=== PATIENT | female | born 1990 | race Caucasian/White ===

== ENCOUNTER 2022-11-29 13:57 | Inpatient (IN) ==
--- NOTE | 2022-11-29 14:14 | History & Physical Report ---
Date of Service November 29, 2022 Assessment & Plan (1) Gestational hypertension: (2) Supervision of normal intrauterine in multigravida: (3) Umbilical vein abnormality affecting : Plan Has met criteria for GHTN, no s/s of pet. Now cephalic. The r/b/se of c/s were discussed with the patient. The risks of surgery were discussed with the patient including the risks of anesthesia, bleeding requiring transfusion, infection, poor wound healing, urinary retention, damage to surrounding structures including bowels, bladder, vessels, nerves and ureters that may require further surgery, hospitalization or intervention. The other risks of any surgery were discussed including heart attack, blood clots, stroke or . Discussed risk of injury to the baby. Discussed the r/b/se of induction of labor/vaginal delivery. cx favorable. Discussed pit induction vs. arom induction. Discussed that cannot guarantee would not end up in c/s but all of the signs point to success with vaginal delivery--previous succesful vag delivery, early induction, favorable cervix. She notes she had a three hour push, which is unlikely to happen this time around. Also had a temp and nrfht with vavd. All of this unlikely this time around. after discussion, patient is ok with proceeding with induction and is ok with pitocin. Admission and Anticipated Discharge Date Admission Date: November 29, 2022 History of Present Illness Chief Complaint: ghtn Primary Care Provider: Rolanda Gray PA-C Patient is a 32yowf with iup at 35 4/7 weeks who presents to the [facility] for bp check. Was seen Tuesday night with some mildly elevated blood pressures. w/u for pet was negative, labs normal. She was d/c home. Notes pressures over the weekend in the 140s/80-90. Presents today and after 10 minutes of sitting, BP was 140s/90s. So meets criteria for GHTN. Was breech and scheduled for c/s. Notes no s/s of pet. Last us ac 30%, efw 33%, dvp 6.3cm. Patient had a very poor experience with her last with the labor, pain management, and needing vavd. She was considering primary c/s anyway. and Delivery Plans Umbilical vein varix [place] anatomy [place] [facility] [place]09[place] - EFW 13%, prominent umbilical vein -f/u US 4 wks for growth and umbilical vein for size and flow, if normal then continue serial growths -if UV > 9mm (varix) or signs of thrombosis, hydrops, heart failure > needs echo cardiogram, hydrops monitoring, testing 1-2x/wk, early delivery considered Painful Epidural in prior *pt requests anesthesia consult (11/04/22 @ 915am) BREECH PRESENTATION C/S SCHEDULED FOR 12/10/[address] KAY Gest HTN at 37+ weeks *Weekly BP chk's with Doc *Weekly CBC, LFTs *Growth US Q4wks *If IUGR: BERNARDO w/UAD's weekly *Deliver 37-38wks *(If Gestational HTN<28wks bring to [facility]) *Twice weekly NST's @Dx OB Labs: E Blood Type A Positive 05/11/22 Antibody Screen NEGATIVE 05/11/22 Hemoglobin 12.2 g/dl (12.0-16.0) 11/26/22 Hematocrit 35.4 % (37.0-47.0) L 11/26/22 Mean Corpuscular Volume 80.6 fL (80.0-100.0) 11/26/22 Platelet Count 196 K/uL (130-400) 11/26/22 Varicella-Zoster IgG Antibody 1640.00 index 09/11/20 Rubella IgG Antibody Immune (Immune) 05/11/22 Rapid Plasma Reagin Nonreactive (Nonreactive) 10/15/22 Hepatitis B Surface Antigen. NON-REACTIVE (NON-REACTIVE) 10/15/22 Hepatitis C Antibody Neg (Neg) 09/11/20 Hepatitis C Antibody (EIA) NON-REACTIVE (NON-REACTIVE) 10/15/22 HIV (1&2) Ag and Ab Confirmation NON-REACTIVE (NON-REACTIVE) 10/15/22 Glucose 1 Hour 50 gm Load 105 mg/dl (70-130) 09/23/22 Maternal Serum Alpha Fetoprotein 46.9 ng/mL 06/28/22 OB Optional Labs: Chlamydia trachomatis RNA Not Detected (NotDetected) 10/15/22 Neisseria gonorrhoeae RNA Not Detected (NotDetected) 10/15/22 Alpha Fetoprotein Triple Screen SEE NOTE 06/28/22 Labs Reviewed: low risk cfdna - sln neg cf/sma - sln neg afp - sln gbs neg Allergies Allergy/AdvReac Type Severity Reaction Status Date / Time No Known Allergies Allergy Verified 11/29/22 10:48 Home Medications Medication Instructions Recorded Confirmed Type vit no.95-ferrous 1 tab PO DAILY 02/13/21 11/29/22 History fumarate 28 mg-folic acid 800 mcg tablet () doxylamine succinate [Unisom 50 mg PO DAILY 05/07/22 11/29/22 History (doxylamine)] breast pump #1 ea 07/30/22 11/29/22 Rx alprazolam 0.5 mg tablet (Xanax) 1 mg PO DAILY 11/18/22 11/29/22 History sertraline 50 mg tablet 125 mg PO DAILY 11/18/22 11/29/22 History Patient History Medical History History of anxiety Scoliosis Seasonal allergies Surgical History History of epidural anesthesia [facility] [place] 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 Both emotionally and pain-kemp. Had lots of pain with epidural last delivery. Would like an anesthesia consult and wants to think about vs . We discussed pros/cons." History of eye surgery ICL- Corrective surgery S/P tonsillectomy and adenoidectomy Family History Mother Hypertension Father Hypertension Dyslipidemia Hyperthyroidism Carotid artery disease Other Diabetes Social History Smoking Status: Never smoker Do You Dip or Chew Tobacco: No; Hx Alcohol Use: No Hx Substance Use: No Preferred Language: Botswanan marital status: marital status details: Jacky (42) [phone] Current Living Situation: Spouse and Family Current Living Situation Comment: lives with spouse, daughter, 2 cats, spouse to change litter current occupational status: employed 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 Date GA wks Lbr Lgth wt Sex Type del Anes Place Del Prov ? Comment 04/25/19 39 6lb 14oz F Vaginal-V acuum Epidural Other [place], [facility] No epidural stopped working when pushing, 05/27/21 7 Aborted-Spontaneous Physical Exam Constitutional: WD/WN, vitals as above Gastrointestinal (Abdomen): soft, gravid, nt, no ruq tenderness Neurologic: patellar DTR's 2+ bilat, sensation intact Genitourinary: cx--3/75/-2/soft, mid toco--q2-3min efm--120s wth mod variability, accels to 150s, no decels us--cephalic Coding Level of Care Code None Diagnoses Gestational hypertension O13.9 Supervision of normal intrauterine in multigravida Z34.80 Umbilical vein abnormality affecting O35.8XX0
[2022-11-29] MEDS ORDERED: LIDOCAINE 1% LOCAL 20 ML VIAL INFIL PRN (14:35)
[2022-11-29] MEDS ORDERED: OXYTOCIN 30 UNITS/500 ML BAG IV PRN ×2 (14:35→14:37)
[2022-11-29 15:13] LABS: Hematocrit (blood only) 36.1 % (37.0-47.0); Hemoglobin 12.2 g/dl (12.0-16.0); Mean Corpuscular Hemoglobin 27.7 pg (25.0-34.0); Mean Corpuscular Hgb Conc 33.8 g/dL (32.0-36.0); Mean Platelet Volume 10.8 fL (9.4-12.4); Platelet Count 188 K/uL (130-400); RDW Coefficient of Variation 14.6 % (11.5-14.5); RDW Standard Deviation 42.5 fL (36.4-46.3); White Blood Count 9.17 K/ul (4.8-10.8)
[2022-11-29 15:31] LABS: Albumin Globulin Ratio 1.3 (0.9-2); Albumin Level 3.9 gm/dl (3.4-5.0); BUN Creatinine Ratio 12.3 (10-20); Bilirubin,Total 0.3 mg/dl (0.2-1.0); Calcium 8.9 mg/dl (8.6-10.3); Creatinine Clr Calc Pharmacy 130.2 ml/min; Est GFR (African American) 140.2 ml/min; Potassium 3.6 mmol/L (3.5-5.1); Total Protein 6.9 gm/dl (6.0-8.3)
[2022-11-29] MEDS: LACTATED RINGER'S 1,000 ML IV PRN ×2 (16:06→18:30)
[2022-11-29] MEDS ORDERED: LIDOCAINE 2%/EPINEPHRINE 1:200,000 20 ML PF ONE (17:51)
[2022-11-29] MEDS ORDERED: SODIUM CHLORIDE 0.9% PF INJ 10 ML VIAL ONE (17:51)
[2022-11-29] MEDS ORDERED: BUPIVACAINE 0.25% PF 30 ML VIAL ONE (17:51)
[2022-11-29] MEDS ORDERED: ePHEDrine sulfate 50 MG/ML AMP ONE (17:51)
[2022-11-29] MEDS ORDERED: fentaNYL citrate PF 100 MCG/2 ML VIAL ONE (17:51)
[2022-11-29] MEDS ORDERED: fentaNYL 2MCG/ML ROPIVACAINE 1.25MG/ML 100 ML BAG EPI ONE (17:52)
[2022-11-29] MEDS ORDERED: SODIUM CHLORIDE 0.9% PF INJ 10 ML VIAL EPI PRN (19:00)
[2022-11-29] MEDS ORDERED: diphenhydrAMINE 50 MG/ML VIAL IV PRN (19:00)
[2022-11-29] MEDS ORDERED: LIDOCAINE 2% MPF LOCAL 5 ML VIAL EPI PRN (19:00)
[2022-11-29] MEDS ORDERED: SODIUM CHLORIDE 0.9% PF INJ 10 ML VIAL EPI STA (19:00)
[2022-11-29] MEDS ORDERED: NALOXONE HCL 0.4 MG/1 ML VIAL/CARP IV PRN (19:00)
[2022-11-29] MEDS ORDERED: ePHEDrine sulfate 50 MG/ML AMP IV PRN (19:00)
[2022-11-29] MEDS ORDERED: LIDOCAINE 2%/EPINEPHRINE 1:200,000 20 ML PF EPI STA (19:00)
[2022-11-29] MEDS ORDERED: BUPIVACAINE 0.25% PF 30 ML VIAL EPI STA (19:00)
[2022-11-29] MEDS ORDERED: fentaNYL 2MCG/ML ROPIVACAINE 1.25MG/ML 100 ML BAG EPI PRN (19:00)
[2022-11-29] MEDS ORDERED: ONDANSETRON INJ 2 MG/ML 2 ML VIAL IV PRN (19:00)
[2022-11-29] MEDS ORDERED: BUPIVACAINE 0.25% PF 30 ML VIAL EPI PRN (19:00)
[2022-11-29] MEDS ORDERED: fentaNYL citrate PF 100 MCG/2 ML VIAL EPI PRN (19:00)
[2022-11-29] MEDS ORDERED: fentaNYL citrate PF 100 MCG/2 ML VIAL EPI STA (19:00)
[2022-11-29] MEDS ORDERED: NALOXONE HCL 1 MG in SODIUM CHLORIDE 0.9% 1000ML 1,000 ML IV PRN (19:00)
[2022-11-29] MEDS ORDERED: ROPIVACAINE 0.5% PF 5 MG/ML 20 ML VIAL EPI PRN (19:00)
[2022-11-29] MEDS ORDERED: NALBUPHINE HCL INJ 10 MG/ML AMP IV PRN (19:00)
--- NOTE | 2022-11-29 19:00 | Anesthesiology Consultation ---
Date of Service November 29, 2022 Assessment & Plan Chart Review Chart Review: Patient NOT seen in Pre Admission Testing and Acceptable Risk for Labor Epidural Consults Requested none ASA ASA2 Proposed Anesthesia Anesthesia Type: Labor Epidural Risk / Benefits Reviewed With: PT / POA / Parent / Guardian, Accepts Plan and Informed Consent Obtained History Surgery Operation Date: 12/10/22 09:05 Proposed Procedures p Section in LD - Jeanne Barfield MD, FACOG Height/Weight Height: 5 ft 6 in Weight: 68.039 kg Allergies Allergy/AdvReac Type Severity Reaction Status Date / Time No Known Allergies Allergy Verified 11/29/22 10:48 Medications Home Medications Medication Instructions Recorded Confirmed Last Taken vit no.95-ferrous 1 tab PO DAILY 02/13/21 11/29/22 11/28/22 fumarate 28 mg-folic acid 800 mcg tablet () doxylamine succinate [Unisom 50 mg PO DAILY 05/07/22 11/29/22 11/28/22 (doxylamine)] breast pump #1 ea 07/30/22 11/29/22 Unknown alprazolam 0.5 mg tablet (Xanax) 1.5 mg PO DAILY 11/18/22 11/29/22 11/29/22 sertraline 50 mg tablet 150 mg PO DAILY 11/18/22 11/29/22 11/29/22 Active Medications Generic Name Dose Route Start Last Admin Trade Name Freq PRN Reason Stop Dose Admin Lactated Ringer's 1,000 mls @ 125 mls/hr 11/29/22 14:35 11/29/22 18:30 Lr IV 12/01/22 14:34 125 mls/hr .Q8H PRN Administration L&D Protocol Protocol Oxytocin 30 units in 500 mls @ 5 mls/hr 11/29/22 14:37 11/29/22 17:35 Pitocin IV 12/01/22 14:36 0.3 units/hr .Q24H PRN 5 mls/hr Labor Induction/Augmentation Titration Protocol 0.3 UNITS/HR Past Medical History Medical History History of anxiety Scoliosis Seasonal allergies Exercise / Class Metabolic Activity II 4-5 Yardwork/Stairs/Walk up hill Past Family History Family History Mother Hypertension Father Hypertension Dyslipidemia Hyperthyroidism Carotid artery disease Other Diabetes Past Surgical History Surgical History History of epidural anesthesia [facility] [facility] [place] 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 Both emotionally and pain-kemp. Had lots of pain with epidural last delivery. Would like an anesthesia consult and wants to think about vs . We discussed pros/cons." History of eye surgery ICL- Corrective surgery S/P tonsillectomy and adenoidectomy Past Anesthesia History No Hx of Anesthesia Complications and No Family Hx of Anesthesia Complications History of PONV No Hx of PONV and No Hx of Motion Sickness Social History Smoking Status: Never smoker Do You Dip or Chew Tobacco: No Hx Alcohol Use: No Hx Substance Use: No substance use type: does not use Physical Exam Vital Signs Last Vital Signs Temp 36.8 C 11/29/22 18:45 Pulse 64 11/29/22 18:58 Resp 20 11/29/22 18:45 BP 140/70 11/29/22 18:58 Pulse Ox 99 11/29/22 18:54 ENMT Mouth: no dentition abnormality Thyromental Distance: > or= 3.5 Finger Breadths Mallampati Class: II Neck normal visual inspection Respiratory normal respiratory effort Auscultation: lungs clear to auscultation bilaterally Cardiovascular Rate/Rhythm: regular rate and regular rhythm Psychiatric Orientation: alert Testing Laboratory Results 11/29/22 15:01 11/29/22 15:01
[2022-11-29] MEDS: SERTRALINE HCL 50 MG TABLET PO SCH (23:55)
--- NOTE | 2022-11-30 01:46 | Anesthesia Procedure Note ---
Date of Service November 30, 2022 Anesthesia Post Epidural Note Vital Signs Vital Signs: Temp Pulse Resp BP Pulse Ox 37.1 C 82 16 166/102 H 97 11/29/22 21:21 11/30/22 01:42 11/29/22 21:21 11/30/22 01:42 11/30/22 01:19 Pain Intensity Bilateral Lower Abdomen: Pain Intensity: 4 Notes Mental Status: alert / awake / arousable Nausea / Vomiting: adequately controlled Pain: adequately controlled Airway Patency, RR, SpO2: stable & adequate BP & HR: stable & adequate Hydration State: stable & adequate Neuraxial Anesthesia: was administered and sensory block is resolving Anesthetic Complications: no major complications apparent and Pt Satisfied with anesthetic care Epidural: Removed without complications and With tip intact
[2022-11-30] MEDS ORDERED: BENZOCAINE 20% SPRY 85 APPLN/85 GM CAN EXT PRN (01:48)
[2022-11-30] MEDS ORDERED: bisacodyL 10 MG SUPP PR PRN (01:48)
[2022-11-30] MEDS ORDERED: DIPHTHERIA/TETANUS/PERTUSSIS Vaccine (Tdap, Age 7+yrs) 0.5mL SYR/VL IM ONE (01:48)
[2022-11-30] MEDS ORDERED: OXYTOCIN 30 UNITS/500 ML BAG IV PRN (01:48)
[2022-11-30] MEDS ORDERED: HYDROCORTISONE ACETATE 25 MG SUPP PR PRN (01:48)
[2022-11-30] MEDS: IBUPROFEN 600 MG TAB PO PRN ×3 (05:39→18:49)
[2022-11-30] MEDS ORDERED: NIFEdipine 10 MG CAP PO STA (06:00)
--- NOTE | 2022-11-30 08:18 | Delivery Summary ---
Vaginal Delivery Summary Date of Service November 30, 2022 Vaginal Delivery Summary and 1st Degree LAC EBL: 100 mL Complications: None Patient progressed to 10 cm dilated, 100% effaced, +2-3 station pushed over intact perineum with epidural anesthesia and delivered a viable with weight and Apgars pending. Patient pushed for approximately 8 to 10 minutes to achieve delivery. Head of the delivered in SEVERO position restituted to left transverse. A loose nuchal cord was noted which was easily reduced. Body and shoulders quickly followed. was noted to have good tone and movement at time of delivery. Spontaneous cry not noted was noted to be opening eyes. A delayed cord clamping with stimulation was initiated after which the cord was doubly clamped and cut taken to the waiting nursery staff for further evaluation. Cord blood obtained. Attention was then turned to delivery the placenta was delivered intact with three-vessel cord gentle cord traction. Inspection of the perineum vagina cervix there is noted to be a small first-degree laceration which repaired with 3-0 Vicryl continuous running stitch. It was noted to be a right labial laceration which was repaired with 3- 0 Vicryl interrupted stitch. Needle sponge and instrument counts are correct at the completion the case. Both mother and stable immediate postdelivery. [facility] Vaginal Delivery Charge Delivery Type Details: and 1st Degree LAC
[2022-11-30] MEDS: NIFEdipine EXTENDED REL 30 MG TABCR PO SCH (08:31)
[2022-11-30] MEDS: PRENATAL VITAMIN 1 TAB PO SCH (08:31)
[2022-11-30] MEDS: DOCUSATE SODIUM 100 MG CAP PO SCH ×2 (08:31→20:46)
[2022-11-30] MEDS: FERROUS SULFATE 325 MG TAB PO SCH (08:31)
[2022-11-30] MEDS: ACETAMINOPHEN 325 MG TAB PO PRN ×2 (08:32→20:15)
[2022-11-30] MEDS ORDERED: MAG SULFATE 4GM BOLUS FROM BAG IV ONE (08:38)
[2022-11-30 08:42] LABS: Hematocrit (blood only) 36.5 % (37.0-47.0); Hemoglobin 12.3 g/dl (12.0-16.0); Mean Corpuscular Hemoglobin 27.4 pg (25.0-34.0); Mean Corpuscular Hgb Conc 33.7 g/dL (32.0-36.0); Mean Corpuscular Volume 81.3 fL (80.0-100.0); Mean Platelet Volume 10.9 fL (9.4-12.4); Platelet Count 176 K/uL (130-400); RDW Coefficient of Variation 14.7 % (11.5-14.5); Red Blood Count 4.49 M/uL (4.20-5.40); White Blood Count 15.03 K/ul (4.8-10.8)
[2022-11-30 08:58] LABS: Creatinine Clr Calc Pharmacy 145.5 ml/min; Est GFR (African American) 145.4 ml/min; Est GFR (Non-African American) 125.5 ml/min
[2022-11-30] MEDS ORDERED: LABETALOL HCL IV 5 MG/ML 20ML IV STA (09:13)
[2022-11-30] MEDS: LACTATED RINGER'S 1,000 ML IV PRN ×2 (10:10→22:16)
[2022-11-30] MEDS: MAGNESIUM SULFATE / WTR 40 GM/1,000 ML BAG IV SCH (10:23)
[2022-11-30 12:19] LABS: Hematocrit (blood only) 32.9 % (37.0-47.0); Mean Corpuscular Hemoglobin 27.6 pg (25.0-34.0); Mean Corpuscular Hgb Conc 33.4 g/dL (32.0-36.0); Mean Corpuscular Volume 82.5 fL (80.0-100.0); Mean Platelet Volume 10.5 fL (9.4-12.4); Platelet Count 163 K/uL (130-400); RDW Coefficient of Variation 14.6 % (11.5-14.5); RDW Standard Deviation 43.4 fL (36.4-46.3); Red Blood Count 3.99 M/uL (4.20-5.40); White Blood Count 11.08 K/ul (4.8-10.8)
[2022-11-30 12:34] LABS: Albumin Globulin Ratio 1.7 (0.9-2); Albumin Level 3.5 gm/dl (3.4-5.0); BUN Creatinine Ratio 10.5 (10-20); Bilirubin,Total 0.3 mg/dl (0.2-1.0); Calcium 8.2 mg/dl (8.6-10.3); Creatinine Clr Calc Pharmacy 130.2 ml/min; Est GFR (African American) 140.2 ml/min; Globulin 2.1 gm/dl (2.5-4.0); Magnesium Therapeutic L&D Only 3.9 mg/dL (4.0-8.0); Potassium 3.4 mmol/L (3.5-5.1); Total Protein 5.6 gm/dl (6.0-8.3)
[2022-11-30] MEDS ORDERED: ALPRAZolam 0.5 MG TABLET PO PRN ×2 (12:36→22:51)
[2022-11-30 18:42] LABS: Hemoglobin 12.2 g/dl (12.0-16.0); Mean Corpuscular Hemoglobin 27.5 pg (25.0-34.0); Mean Corpuscular Volume 83.3 fL (80.0-100.0); Mean Platelet Volume 10.4 fL (9.4-12.4); Platelet Count 166 K/uL (130-400); RDW Coefficient of Variation 14.8 % (11.5-14.5); RDW Standard Deviation 44.3 fL (36.4-46.3); Red Blood Count 4.44 M/uL (4.20-5.40); White Blood Count 10.13 K/ul (4.8-10.8)
[2022-11-30 18:56] LABS: Albumin Globulin Ratio 1.3 (0.9-2); Albumin Level 3.8 gm/dl (3.4-5.0); BUN Creatinine Ratio 7.1 (10-20); Bilirubin,Total 0.3 mg/dl (0.2-1.0); Calcium 7.5 mg/dl (8.6-10.3); Creatinine Clr Calc Pharmacy 132.5 ml/min; Est GFR (Non-African American) 121.7 ml/min; Magnesium Therapeutic L&D Only 5.5 mg/dL (4.0-8.0); Potassium 3.6 mmol/L (3.5-5.1); Total Protein 6.8 gm/dl (6.0-8.3)
[2022-11-30] MEDS: SERTRALINE HCL 50 MG TABLET PO SCH (20:47)
--- NOTE | 2022-11-30 22:58 | Communication Note ---
Date of Service: November 30, 2022 Patient requesting more alprazolam this evening after taking 1.5mg dose this afternoon, feeling like she is unable to sleep overnight and that she normally takes smaller doses throughout the night. She reports that she is typically taking 0.5mg at night to go to bed and then wakes up in the middle of the night and takes another 0.5mg dose. I have changed her orders to more accurately reflect what she reports she is taking at home. At this point moving forward, I have placed orders for 0.5mg dose Q6h PRN anxiety.
[2022-12-01 00:40] LABS: Hematocrit (blood only) 32.4 % (37.0-47.0); Hemoglobin 10.9 g/dl (12.0-16.0); Mean Corpuscular Hemoglobin 27.7 pg (25.0-34.0); Mean Corpuscular Hgb Conc 33.6 g/dL (32.0-36.0); Mean Corpuscular Volume 82.2 fL (80.0-100.0); Mean Platelet Volume 10.5 fL (9.4-12.4); Platelet Count 159 K/uL (130-400); RDW Coefficient of Variation 14.8 % (11.5-14.5); RDW Standard Deviation 44.1 fL (36.4-46.3); Red Blood Count 3.94 M/uL (4.20-5.40); White Blood Count 9.14 K/ul (4.8-10.8)
[2022-12-01 01:04] LABS: Albumin Globulin Ratio 1.7 (0.9-2); Albumin Level 3.5 gm/dl (3.4-5.0); BUN Creatinine Ratio 8.5 (10-20); Bilirubin,Total 0.2 mg/dl (0.2-1.0); Calcium 6.8 mg/dl (8.6-10.3); Creatinine Clr Calc Pharmacy 157.9 ml/min; Est GFR (African American) 149.4 ml/min; Est GFR (Non-African American) 128.9 ml/min; Globulin 2.1 gm/dl (2.5-4.0); Magnesium Therapeutic L&D Only 6.1 mg/dL (4.0-8.0); Potassium 3.2 mmol/L (3.5-5.1); Total Protein 5.6 gm/dl (6.0-8.3)
[2022-12-01] MEDS: IBUPROFEN 600 MG TAB PO PRN ×4 (01:59→20:43)
[2022-12-01] MEDS: MAGNESIUM SULFATE / WTR 40 GM/1,000 ML BAG IV SCH (04:48)
[2022-12-01 06:04] LABS: Hematocrit (blood only) 31.5 % (37.0-47.0); Hemoglobin 10.7 g/dl (12.0-16.0); Mean Corpuscular Hemoglobin 27.5 pg (25.0-34.0); Mean Platelet Volume 10.2 fL (9.4-12.4); Platelet Count 153 K/uL (130-400); RDW Standard Deviation 43.8 fL (36.4-46.3); Red Blood Count 3.89 M/uL (4.20-5.40); White Blood Count 8.84 K/ul (4.8-10.8)
[2022-12-01 06:20] LABS: Alanine Aminotransferase 18 U/L (7-52); Albumin Globulin Ratio 1.5 (0.9-2); Albumin Level 3.3 gm/dl (3.4-5.0); Alkaline Phosphatase 94 U/L (34-104); Anion Gap 7 (3-11); Aspartate Aminotransferase 22 U/L (13-39); BUN Creatinine Ratio 6.7 (10-20); Bilirubin,Total 0.2 mg/dl (0.2-1.0); Blood Urea Nitrogen 3 mg/dl (6-23); Calcium 6.2 mg/dl (8.6-10.3); Carbon Dioxide 23 mmol/L (21-32); Chloride 103 mmol/L (98-107); Creatinine Clr Calc Pharmacy 164.9 ml/min; Est GFR (African American) > 150.0 ml/min; Est GFR (Non-African American) 130.7 ml/min; Globulin 2.2 gm/dl (2.5-4.0); Glucose 95 mg/dl (70-99(Fasting)); Potassium 3.3 mmol/L (3.5-5.1); Sodium 133 mmol/L (136-145); Total Protein 5.5 gm/dl (6.0-8.3)
--- NOTE | 2022-12-01 06:34 | Obstetrical Progress Note ---
Date of Service December 01, 2022 Assessment & Plan (1) (normal spontaneous vaginal delivery): Plan: encourage ambulation, wallace out, diet as tolerated, once mag d/c'd (2) Headache: Plan: d/c mag today monitor headache tylenol, ibuprofen PRN Admission and Anticipated Discharge Date Admission Date: November 29, 2022 Supervising Physician Co-Signing Physician Notes Resident Physician Supervision Note: I was present with Dr. Swift during the history and exam. I discussed the case with the resident and agree with the findings and plan as documented in the note. Any exceptions or clarifications are listed here: PPD1 doing well. Magnesium to stop at 10:30a - will start ambulating, increase diet when mag stops. Anticipate DC home tomorrow. Documented By: Sade Thao, DO Subjective 32 PMHx GHTN, anxiety post day 1 s/p . Ambulation: was ambulating normally before started on mag Voiding: wallace catheter in place Passing Gas:: Yes Diet Tolerance:: NPO Lochia:: Small Feeding Type:: bottle and breast feeding Current Pain Level minimal Developed headache yesterday morning, started on mag. MCDONOUGH greatly improved today. Difficultly sleeping last night, started on 0.5mg alprazolam q6 PRN sleep which is normal for her. She was able to rest overnight. Restiing comfortably this am. Denies MCDONOUGH, CP, SOB, N/V/D, LE pain or swelling Review of Systems Review of Systems: reviewed, per hpi Physical Exam Physical Exam: General: patient resting comfortably, NAD, non-toxic in appearance, AA&O x 4, answers questions appropriately. Skin: warm, dry, intact HEENT: NC/AT, anicteric sclera, conjunctiva without injection, moist mucus membranes. Heart: +S1/S2, regular, no m/r/g Lungs: equal air entry bilaterally, no rales/rhonchi/wheezes Abd: +BS, soft, NT/ND, uterine fundus firm at umbilicus : wallace catheter in place draining pale clear urine Ext: warm, no clubbing/cyanosis or edema, Maria Elena's neg Neuro: nonfocal, patient AA&O x 4, speech intact, no facial droop, moving all extremities on command. Results & Data Vital Signs (Past 12 Hours) Vital Signs Temp Pulse Resp BP Pulse Ox O2 Del Method 12/01/22 05:45 16 12/01/22 04:45 16 12/01/22 04:45 16 12/01/22 03:30 16 12/01/22 02:45 36.4 C L 18 12/01/22 02:45 18 12/01/22 01:10 16 12/01/22 00:16 16 11/30/22 23:15 16 11/30/22 22:00 36.8 C 16 11/30/22 22:00 16 11/30/22 21:00 18 11/30/22 20:15 18 11/30/22 19:00 36.7 C 20 11/30/22 19:00 20 11/30/22 19:00 Room Air 12/01/22 06:19 91 H 100 12/01/22 06:14 79 96 12/01/22 06:13 82 94 12/01/22 06:09 78 96 12/01/22 06:04 77 96 12/01/22 05:59 76 96 12/01/22 05:54 80 97 12/01/22 05:49 76 96 12/01/22 05:44 74 96 12/01/22 05:42 73 91/51 L 12/01/22 05:39 75 96 12/01/22 05:34 73 96 12/01/22 05:29 74 96 12/01/22 05:24 72 96 12/01/22 05:19 71 96 12/01/22 05:14 73 96 12/01/22 05:09 77 98 12/01/22 05:04 69 96 12/01/22 04:59 82 98 12/01/22 04:54 81 100 12/01/22 04:49 76 99 12/01/22 04:44 74 99 12/01/22 04:42 80 126/69 12/01/22 04:39 91 H 100 12/01/22 04:34 95 H 100 12/01/22 04:29 78 99 12/01/22 04:24 81 98 12/01/22 04:19 79 99 12/01/22 04:14 74 99 12/01/22 04:09 78 99 12/01/22 04:04 78 98 12/01/22 03:59 80 100 12/01/22 03:54 82 100 12/01/22 03:49 82 100 12/01/22 03:44 88 100 12/01/22 03:42 73 117/66 12/01/22 03:39 76 99 12/01/22 03:34 84 100 12/01/22 03:29 83 98 12/01/22 03:24 70 97 12/01/22 03:19 72 97 12/01/22 03:14 80 98 12/01/22 03:09 73 97 12/01/22 03:04 74 99 12/01/22 02:59 78 99 12/01/22 02:54 92 H 99 12/01/22 02:49 83 100 12/01/22 02:44 92 H 100 12/01/22 02:40 76 126/79 12/01/22 02:39 82 100 12/01/22 02:34 85 100 12/01/22 02:29 83 100 12/01/22 02:24 79 100 12/01/22 02:19 82 100 12/01/22 02:14 79 100 12/01/22 02:09 80 100 12/01/22 02:04 83 100 12/01/22 01:59 83 100 12/01/22 01:56 81 115/75 12/01/22 01:54 77 100 12/01/22 01:49 79 99 12/01/22 01:44 84 99 12/01/22 01:39 80 100 12/01/22 01:34 76 100 12/01/22 01:29 72 100 12/01/22 01:24 81 100 12/01/22 01:19 76 99 12/01/22 01:14 79 99 12/01/22 01:09 96 H 99 12/01/22 01:04 75 96 12/01/22 00:59 76 96 12/01/22 00:56 74 108/66 12/01/22 00:54 74 96 12/01/22 00:49 74 96 12/01/22 00:44 75 96 12/01/22 00:39 75 96 12/01/22 00:34 84 96 12/01/22 00:29 75 96 12/01/22 00:24 74 96 12/01/22 00:19 77 94 12/01/22 00:20 78 93 12/01/22 00:14 87 99 12/01/22 00:09 78 96 12/01/22 00:04 78 96 11/30/22 23:59 78 96 11/30/22 23:56 75 108/66 11/30/22 23:54 77 96 11/30/22 23:49 78 96 11/30/22 23:44 76 96 11/30/22 23:39 77 96 11/30/22 23:34 85 96 11/30/22 23:29 79 96 11/30/22 23:24 83 96 11/30/22 23:19 86 98 11/30/22 23:14 86 99 11/30/22 23:09 90 99 11/30/22 23:04 77 98 11/30/22 22:59 86 98 11/30/22 22:56 82 127/77 11/30/22 22:54 86 98 11/30/22 22:49 86 99 11/30/22 22:44 84 97 11/30/22 22:39 86 98 11/30/22 22:34 82 97 11/30/22 22:29 79 99 11/30/22 22:24 85 99 11/30/22 22:19 82 100 11/30/22 22:14 81 100 11/30/22 22:09 80 99 11/30/22 22:05 78 134/92 11/30/22 22:04 83 100 11/30/22 21:59 78 100 11/30/22 21:54 77 99 11/30/22 21:49 70 100 11/30/22 21:44 82 99 11/30/22 21:39 83 99 11/30/22 21:34 74 99 11/30/22 21:29 76 100 11/30/22 21:24 77 100 11/30/22 21:19 83 100 11/30/22 21:14 76 100 11/30/22 21:09 77 100 11/30/22 21:04 80 100 11/30/22 20:59 76 100 11/30/22 20:54 100 11/30/22 20:54 75 11/30/22 20:54 71 129/77 11/30/22 20:49 80 100 11/30/22 20:44 87 100 11/30/22 20:39 78 100 11/30/22 20:34 76 100 11/30/22 20:29 74 100 11/30/22 20:24 86 100 11/30/22 20:19 79 100 11/30/22 20:14 79 100 11/30/22 20:09 76 100 11/30/22 20:08 75 133/83 11/30/22 20:04 76 100 11/30/22 19:59 76 100 11/30/22 19:54 73 100 11/30/22 19:49 85 100 11/30/22 19:44 74 100 11/30/22 19:39 78 100 11/30/22 19:34 75 100 11/30/22 19:29 75 100 11/30/22 19:24 83 100 11/30/22 19:19 87 100 11/30/22 19:14 75 100 11/30/22 19:09 73 100 11/30/22 19:04 76 100 11/30/22 19:05 73 132/86 11/30/22 18:45 71 100 11/30/22 18:40 72 100 11/30/22 18:35 77 100 11/30/22 18:30 69 100 11/30/22 18:25 72 100 Resident Activity Tracking Resident Involvement: Resident Care Provided Care Provided: Adult Hospital Medicine
[2022-12-01] MEDS: FERROUS SULFATE 325 MG TAB PO SCH (09:00)
[2022-12-01] MEDS: DOCUSATE SODIUM 100 MG CAP PO SCH ×2 (09:00→20:43)
[2022-12-01] MEDS: PRENATAL VITAMIN 1 TAB PO SCH (09:00)
[2022-12-01] MEDS: NIFEdipine EXTENDED REL 30 MG TABCR PO SCH (09:14)
[2022-12-01] MEDS ORDERED: oxyCODONE/ACETAMINOPHEN 5mg/325mg TAB PO PRN (11:23)
[2022-12-01 13:33] VITALS: O2SAT 97
[2022-12-01] MEDS: FLUTICASONE PROPIONATE NA SPR 16 GM BTL SCH (16:27)
[2022-12-01] MEDS ORDERED: bisacodyL 5 MG TABEC PO SCH (20:00)
[2022-12-01] MEDS: SERTRALINE HCL 50 MG TABLET PO SCH (20:42)
[2022-12-02] MEDS: IBUPROFEN 600 MG TAB PO PRN (05:35)
--- NOTE | 2022-12-02 06:31 | Obstetrical Progress Note ---
Date of Service December 02, 2022 Assessment & Plan (1) (normal spontaneous vaginal delivery): Plan: encourage ambulation plan for DC today (2) Headache: Plan: resolved tylenol, ibuprofen PRN Admission and Anticipated Discharge Date Admission Date: November 29, 2022 Supervising Physician Co-Signing Physician Notes Resident Physician Supervision Note: I was present with Dr. Swift during the history and exam. I discussed the case with the resident and agree with the findings and plan as documented in the note. Any exceptions or clarifications are listed here: [None] Documented By: Cullen Fofana MD, FACOG Subjective 32 PMHx GHTN, anxiety post day 2 s/p . Ambulation: ambulating normally Voiding: no voiding difficulty Passing Gas:: Yes Diet Tolerance:: regular diet Lochia:: Small Feeding Type:: bottle and breast feeding Current Pain Level minimal Headache resolved since yesterday. Resting comfortably this am. Denies MCDONOUGH, CP, SOB, N/V/D, LE pain or swelling Review of Systems Review of Systems: reviewed, per hpi Physical Exam Physical Exam: General: patient resting comfortably, NAD, non-toxic in appearance, AA&O x 4, answers questions appropriately. Skin: warm, dry, intact HEENT: NC/AT, anicteric sclera, conjunctiva without injection, moist mucus membranes. Heart: +S1/S2, regular, no m/r/g Lungs: equal air entry bilaterally, no rales/rhonchi/wheezes Abd: +BS, soft, NT/ND, uterine fundus firm at umbilicus Ext: warm, no clubbing/cyanosis or edema, Maria Elena's neg Neuro: nonfocal, patient AA&O x 4, speech intact, no facial droop, moving all extremities on command. Results & Data Vital Signs (Past 12 Hours) Vital Signs Temp Pulse Resp BP 12/02/22 05:30 36.8 C 67 18 150/92 H 12/01/22 23:55 36.6 C 70 19 137/78 12/01/22 20:40 36.6 C 84 18 130/84 Resident Activity Tracking Resident Involvement: Resident Care Provided Care Provided: [facility] Medicine
[2022-12-02] MEDS: FLUTICASONE PROPIONATE NA SPR 16 GM BTL SCH (08:53)
[2022-12-02] MEDS: PRENATAL VITAMIN 1 TAB PO SCH (08:54)
[2022-12-02] MEDS: DOCUSATE SODIUM 100 MG CAP PO SCH (08:54)
[2022-12-02] MEDS: FERROUS SULFATE 325 MG TAB PO SCH (08:54)
[2022-12-02] MEDS: NIFEdipine EXTENDED REL 30 MG TABCR PO SCH (08:54)
[2022-12-02 09:14] VITALS: BP 143/98; PULSE 66; TEMP 97.5
== END 2022-12-02 13:30 | disposition home or self-care (01) | DRG 807 ==
LOC: 4S1 13:57 → 4E2 11-30 05:28 → 4S1 11-30 10:15 → 4E2 12-01 13:04 → EDSTATUS 12-10 09:05

== ENCOUNTER 2022-12-10 16:12 | Inpatient (IN) ==
--- NOTE | 2022-12-10 16:49 | ED Triage Note ---
Date of Service December 10, 2022 History of Present Illness This patient was briefly evaluated while in triage. An abbreviated physical exam was performed. This patient is a 32-year-old Female who presents to the ED for evaluation of headache. She gave 11/30. She was diagnosed with pre-eclampsia and received IV magnesium. She is on BP meds at home and states her dose was doubled yesterday. Blood pressures have been elevated at home. Physical Exam VITALS: Vitals are noted on the nurse's note and reviewed by myself. Hypertensive. GENERAL: This is a 32-year-old female, in no acute distress, well-developed well-nourished. HEAD: Normocephalic atraumatic. EYES: Pupils equal round and reactive to light and accommodation. Extraocular movements intact. HEART: Regular rate and rhythm, no murmurs, gallops or rubs. LUNGS: Clear to auscultation bilaterally without wheezes, rales or rhonchi. NEURO: Patient was alert and oriented to person place and time. Initial orders for labs and / or imaging were placed and patient was placed in the waiting area until a bed is available. Please see further documentation for the full ED course. MDM / Impression Impression Impression: Gestational hypertension without significant proteinuria, hypertension
[2022-12-10 17:48] LABS: Basophils # (auto) 0.04 K/uL (0.00-0.20); Basophils % (auto) 0.5 %; Eosinophils # (auto) 0.19 K/uL (0.00-0.50); Eosinophils % (auto) 2.3 %; Hematocrit (blood only) 39.3 % (37.0-47.0); Hemoglobin 13.3 g/dl (12.0-16.0); Immature Granulocytes # (auto) 0.02 K/uL (0.01-0.20); Immature Granulocytes % (auto) 0.2 %; Lymphocytes # (auto) 2.72 K/uL (1.20-3.40); Lymphocytes % (auto) 32.3 %; Mean Corpuscular Hemoglobin 27.6 pg (25.0-34.0); Mean Corpuscular Hgb Conc 33.8 g/dL (32.0-36.0); Mean Corpuscular Volume 81.5 fL (80.0-100.0); Monocytes # (auto) 0.54 K/uL (0.11-0.59); Monocytes % (auto) 6.4 %; Neutrophils % (auto) 58.3 %; Platelet Count 316 K/uL (130-400); RDW Coefficient of Variation 13.8 % (11.5-14.5); RDW Standard Deviation 40.8 fL (36.4-46.3); Red Blood Count 4.82 M/uL (4.20-5.40); White Blood Count 8.41 K/ul (4.8-10.8)
--- NOTE | 2022-12-10 18:03 | Emergency Department Note ---
History of Present Illness General Chief Complaint: Headache Stated Complaint: HEADACHE, HIGH BP Time Seen by Provider: 12/10/22 16:59 History of Present Illness Provider complaint: + headache Onset (ago): day(s) 1 Onset description: + gradual Location: + occipital and + diffuse Severity: moderate Maximum Pain Intensity: 9 Quality: + dull and + constant Relieved By: + nothing Exacerbated By: + none Context: + occurred at rest; no recent head injury, no known CO exposure, no tick bite or no recent URI Associated symptoms: + shortness of breath; no fever, no nausea, no neck stiffness, no photophobia, no seizure, no eye pain, no syncope, no near syncope, no vision loss, no scotoma, no tingling, no numbness, no confusion, no chest pain, no cough or no diaphoresis Patient is a G3, P2 with history of 1 miscarriage who had a vaginal delivery on November 30, 2022. Patient reports she had elevated blood pressure and preeclampsia and was given magnesium after her delivery. She states her blood pressures have been running high and she saw her PROFESSOR OF COMMUNICATION yesterday had an increase in her Procardia. She reports shortness of breath but no chest pain. She reports no abdominal pain. No vaginal bleeding Home Medications Medication Instructions Recorded Confirmed Type sertraline 50 mg tablet 50 mg PO QAM 11/18/22 12/10/22 History alprazolam 0.5 mg tablet 0.5 - 1 mg PO BID PRN daytime 12/10/22 12/10/22 History anxiety alprazolam 1 mg tablet 1.5 - 2 mg PO HS PRN 12/10/22 12/10/22 History anxiety/insomnia nifedipine 30 mg tablet,extended 30 mg PO QAM 12/10/22 12/10/22 History release 24 hr (Procardia XL) vits no.130-ferrous fum 1 tab PO DAILY 12/10/22 12/10/22 History 27 mg iron-folic acid 800 mcg tablet ( Vitamin) sertraline 100 mg tablet 100 mg PO QAM 12/10/22 12/10/22 History Allergies Allergy/AdvReac Type Severity Reaction Status Date / Time No Known Allergies Allergy Verified 12/09/22 10:49 Past Med/Surg History Medical History Gestational hypertension History of anxiety (normal spontaneous vaginal delivery) Scoliosis Seasonal allergies Umbilical vein abnormality affecting Surgical History History of epidural anesthesia [facility] 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 Both emotionally and pain-kemp. Had lots of pain with epidural last delivery. Would like an anesthesia consult and wants to think about vs . We discussed pros/cons." History of eye surgery ICL- Corrective surgery S/P tonsillectomy and adenoidectomy Family History Mother Hypertension Father Hypertension Dyslipidemia Hyperthyroidism Carotid artery disease Other Diabetes Social History Smoking Status: Never smoker Do You Dip or Chew Tobacco: No; Hx Alcohol Use: No Hx Substance Use: No Preferred Language: Welsh Communication Ability: Effective Pharmacy Technologist Required: No Beliefs That Will Affect Care: None marital status: marital status details: Jacky (42) [phone] Current Living Situation: Spouse Current Living Situation Comment: lives with spouse, daughter, 2 cats, spouse to change litter current occupational status: employed 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 Feels Safe at Home: Yes Physical Exam Vital Signs Vital Signs - 24 hr 12/10/22 16:45 12/10/22 17:03 12/10/22 17:15 Temperature 36.8 C Temperature Source Temporal Artery Scan Pulse Rate 79 80 75 Pulse Rate from SpO2 Sensor Pulse Rhythm Regular Respiratory Rate 16 20 Respiratory Effort / Characteristics Non-Labored Respiratory Depth Normal Blood Pressure 162/111 H Blood Pressure [Right Arm] Blood Pressure Mean 128 Blood Pressure Mean [Right Arm] Blood Pressure Position [Right Arm] Pulse Oximetry 96 96 Oxygen Delivery Method Room Air Room Air Sepsis Recent Fever Within 48 Hours No Sepsis New/Unexplained Change in Mental Status No Sepsis Action Taken by Nursing No Action Required 12/10/22 17:20 12/10/22 19:07 12/10/22 20:42 Temperature Temperature Source Pulse Rate 65 69 Pulse Rate from SpO2 Sensor 70 69 Pulse Rhythm Respiratory Rate 14 15 Respiratory Effort / Characteristics Respiratory Depth Blood Pressure 163/99 H Blood Pressure [Right Arm] 167/117 H Blood Pressure Mean 120 Blood Pressure Mean [Right Arm] 133 Blood Pressure Position [Right Arm] Sitting Pulse Oximetry 96 95 Oxygen Delivery Method Room Air Room Air Sepsis Recent Fever Within 48 Hours Sepsis New/Unexplained Change in Mental Status Sepsis Action Taken by Nursing 12/10/22 20:56 12/10/22 21:28 Temperature Temperature Source Pulse Rate 66 Pulse Rate from SpO2 Sensor Pulse Rhythm Respiratory Rate Respiratory Effort / Characteristics Respiratory Depth Blood Pressure 160/102 H Blood Pressure [Right Arm] Blood Pressure Mean 121 Blood Pressure Mean [Right Arm] Blood Pressure Position [Right Arm] Pulse Oximetry Oxygen Delivery Method Sepsis Recent Fever Within 48 Hours Sepsis New/Unexplained Change in Mental Status Sepsis Action Taken by Nursing Physical Exam HENT: Exam performed. -Head: Normocephalic and atraumatic. -Right Ear: External ear normal. No mastoid erythema -Left Ear: External ear normal. No mastoid erythema -Mouth/Throat: The oropharynx is clear and moist. No trismus in the jaw. No dental abscesses or uvula swelling. No oropharyngeal exudate or tonsillar abscesses. EYES: Conjunctivae and EOM are normal. Pupils are equal, round, and reactive to light. Right eye exhibits no discharge. Left eye exhibits no discharge. No scleral icterus. Funduscopic exam showed no AV nicking or papilledema bilaterally. NECK: Normal range of motion. Neck supple. No JVD present. No spinous process tenderness present. No rigidity. No tracheal deviation and normal range of motion present. No Brudzinski's sign and no Kernig's sign noted. CV: Normal rate, regular rhythm, normal heart sounds and intact distal pulses. There is no peripheral edema. Palpable radial pulses bue. PULM/CHEST: Effort normal and breath sounds normal. No respiratory distress. No stridor. She has no wheezes. She has no rales. ABD: No pain on palpation of the abdomen. MUSC/SKEL: Normal range of motion. There is no peripheral edema, tenderness or deformity. NEURO: She is alert and oriented to person, place, and time. She has normal strength. No cranial nerve deficit or sensory deficit. Coordination and gait normal. GCS eye subscore is 4. GCS verbal subscore is 5. GCS motor subscore is 6. Cerebellar tests wnl. No clonus. SKIN: Skin is warm and dry. She is not diaphoretic. PSYCH: She has a normal mood and affect. Behavior is normal. Judgment and thought content normal. Course Course 1658: The patient was evaluated in room A11. A complete history and physical exam was performed Cardiac monitoring: An order was placed for continuous cardiac monitoring. The monitor shows a rate of 70 with sinus rhythm interpreted by me 2111: Patient remains hypertensive with systolic blood pressures below 160. Labs and imaging within normal limits including urinalysis negative for protein, normal platelets, normal liver function test. Low risk for eclampsia/preeclampsia. CT of the head and CTA of the chest within normal limits. Patient still reporting headache. Discussed the case with Dr. Trammell on-call [facility] PROFESSOR OF COMMUNICATION. We will give the patient Toradol to see if it relieves her headache. She agrees she thinks this is more gestational hypertension and we could possibly add labetalol 100 mg twice daily if the patient's headache and blood pressure are improved. 2157: Patient remains hypertensive. Headache mildly improved. Dr. Trammell at bedside. She recommends Procardia 20 mg p.o. She states she will admit the patient to her service monitoring of the patient's blood pressure and possible magnesium. Administered Medications Discontinued Medications Ioversol (Ioversol 350 Mg 125ml Prefilled Syringe) 118 ml IV ONCE ONE Stop: 12/10/22 19:00 Last Admin: 12/10/22 18:59 Dose: 118 ml Documented By: IVORY Ketorolac Tromethamine (Ketorolac Tromethamine 15 Mg/Ml Vial) 15 mg IV NOW STA Stop: 12/10/22 21:18 Last Admin: 12/10/22 21:24 Dose: 15 mg Documented By: QGV Nifedipine (Nifedipine 10 Mg Cap) 20 mg PO NOW STA Stop: 12/10/22 21:58 Last Admin: 12/10/22 22:22 Dose: 20 mg Documented By: QGV Medical Decision Making Medical Records Attestation: I reviewed the patient's medical records. External medical records reviewed. Patient had a delivery vaginally on November 30, 2022. Her blood pressures were spiking . Laboratory Data Attestation: I reviewed the patient's lab results. 12/10/22 17:19 12/10/22 17:19 Lab Results 12/10/22 12/10/22 12/10/22 Range/Units 17:19 17:19 17:19 WBC 8.41 (4.8-10.8) K/ul RBC 4.82 (4.20-5.40) M/uL Hgb 13.3 (12.0-16.0) g/dl Hct 39.3 (37.0-47.0) % MCV 81.5 (80.0-100.0) fL MCH 27.6 (25.0-34.0) pg MCHC 33.8 (32.0-36.0) g/dL RDW Std Deviation 40.8 (36.4-46.3) fL RDW Coeff of Jadiel 13.8 (11.5-14.5) % Plt Count 316 (130-400) K/uL MPV 9.0 L (9.4-12.4) fL Immature Gran % (Auto) 0.2 % Neut % (Auto) 58.3 % Lymph % (Auto) 32.3 % Valley % (Auto) 6.4 % Eos % (Auto) 2.3 % Baso % (Auto) 0.5 % Neut # (Auto) 4.90 (1.40-6.50) K/uL Lymph # (Auto) 2.72 (1.20-3.40) K/uL Valley # (Auto) 0.54 (0.11-0.59) K/uL Eos # (Auto) 0.19 (0.00-0.50) K/uL Baso # (Auto) 0.04 (0.00-0.20) K/uL Immature Gran # (Auto) 0.02 (0.01-0.20) K/uL PT 10.2 (9.0-12.0) Seconds INR 0.9 (0.9-1.1) APTT 29.4 (21.0-31.0) Seconds PTT Ratio 1.0 D-Dimer 650 H* (0-500) ug/L FEU Sodium 137 (136-145) mmol/L Potassium 3.7 (3.5-5.1) mmol/L Chloride 105 (98-107) mmol/L Carbon Dioxide 23 (21-32) mmol/L Anion Gap 9 (3-11) BUN 20 (6-23) mg/dl Creatinine 0.69 (0.6-1.2) mg/dl Est Cr Clr Drug Dosing Not Reportable Est GFR ( Amer) 131.6 ml/min Est GFR (Non-Af Amer) 113.6 ml/min BUN/Creatinine Ratio 29.0 H (10-20) Glucose 89 (70-99(Fasting)) mg/dl Calcium 9.1 (8.6-10.3) mg/dl Magnesium 2.1 (1.7-2.4) mg/dl Total Bilirubin 0.2 (0.2-1.0) mg/dl AST 15 (13-39) U/L ALT 17 (7-52) U/L Alkaline Phosphatase 83 (34-104) U/L Total Protein 7.6 (6.0-8.3) gm/dl Albumin 4.1 (3.4-5.0) gm/dl Globulin 3.5 (2.5-4.0) gm/dl Albumin/Globulin Ratio 1.2 (0.9-2) Urine Color Urine Appearance (Clear) Urine pH (4.5-7.5) Ur Specific Bradley (1.000-1.030) Urine Protein (Negative) Urine Glucose (UA) (Negative) Urine Ketones (Negative) Urine Blood (Negative) Urine Nitrite (Negative) Urine Bilirubin (Negative) Urine Urobilinogen (Negative) Ur Leukocyte Esterase (Negative) Urine WBC (Auto) (0-5) /hpf Urine RBC (Auto) (0-4) /hpf U Hyaline Cast (Auto) (0-5) /lpf U Epithel Cells (Auto) (0-5) /lpf Urine Bacteria (Auto) (Negative) 12/10/22 Range/Units Unknown WBC (4.8-10.8) K/ul RBC (4.20-5.40) M/uL Hgb (12.0-16.0) g/dl Hct (37.0-47.0) % MCV (80.0-100.0) fL MCH (25.0-34.0) pg MCHC (32.0-36.0) g/dL RDW Std Deviation (36.4-46.3) fL RDW Coeff of Jadiel (11.5-14.5) % Plt Count (130-400) K/uL MPV (9.4-12.4) fL Immature Gran % (Auto) % Neut % (Auto) % Lymph % (Auto) % Valley % (Auto) % Eos % (Auto) % Baso % (Auto) % Neut # (Auto) (1.40-6.50) K/uL Lymph # (Auto) (1.20-3.40) K/uL Valley # (Auto) (0.11-0.59) K/uL Eos # (Auto) (0.00-0.50) K/uL Baso # (Auto) (0.00-0.20) K/uL Immature Gran # (Auto) (0.01-0.20) K/uL PT (9.0-12.0) Seconds INR (0.9-1.1) APTT (21.0-31.0) Seconds PTT Ratio D-Dimer (0-500) ug/L FEU Sodium (136-145) mmol/L Potassium (3.5-5.1) mmol/L Chloride (98-107) mmol/L Carbon Dioxide (21-32) mmol/L Anion Gap (3-11) BUN (6-23) mg/dl Creatinine (0.6-1.2) mg/dl Est Cr Clr Drug Dosing Est GFR ( Amer) ml/min Est GFR (Non-Af Amer) ml/min BUN/Creatinine Ratio (10-20) Glucose (70-99(Fasting)) mg/dl Calcium (8.6-10.3) mg/dl Magnesium (1.7-2.4) mg/dl Total Bilirubin (0.2-1.0) mg/dl AST (13-39) U/L ALT (7-52) U/L Alkaline Phosphatase (34-104) U/L Total Protein (6.0-8.3) gm/dl Albumin (3.4-5.0) gm/dl Globulin (2.5-4.0) gm/dl Albumin/Globulin Ratio (0.9-2) Urine Color Yellow Urine Appearance Clear (Clear) Urine pH 7.0 (4.5-7.5) Ur Specific Bradley 1.009 (1.000-1.030) Urine Protein Negative (Negative) Urine Glucose (UA) Negative (Negative) Urine Ketones Negative (Negative) Urine Blood 3+ H (Negative) Urine Nitrite Negative (Negative) Urine Bilirubin Negative (Negative) Urine Urobilinogen Negative (Negative) Ur Leukocyte Esterase 3+ H (Negative) Urine WBC (Auto) 10-30 H (0-5) /hpf Urine RBC (Auto) 0-4 (0-4) /hpf U Hyaline Cast (Auto) 0 (0-5) /lpf U Epithel Cells (Auto) 20-30 H (0-5) /lpf Urine Bacteria (Auto) Negative (Negative) Imaging Data Attestation: I personally reviewed and interpreted this imaging study as follows: My Impression: CT head: No ICH Radiologist's Impression: Head CT 12/10/22 16:49 Exam(s): CT HEAD Without Contrast EXAM: CT Head Without Intravenous Contrast CLINICAL HISTORY: Reason for exam: Headache, preeclampsia. TECHNIQUE: Axial computed tomography images of the head/brain without intravenous contrast. CTDI is 38.64 mGy and DLP is 624.41 mGy-cm. Automated exposure control was utilized for the study. A dose lowering technique was utilized adhering to the principles of ALARA. Mild motion artifact. COMPARISON: None. FINDINGS: Brain: No mass effect or acute infarct. No acute hemorrhage. Ventricles: No hydrocephalus or midline shift. Bones/joints: No skull fracture. Soft tissues: No scalp hematoma. Sinuses: Clear. Mastoid air cells: No mastoid effusion. IMPRESSION: 1. No acute infarct, bleed, or acute intracranial abnormality. 2. Normal exam, mildly limited by patient motion. Electronically signed by: Charla Mcallister M.D. 12/10/22 20:25 PM Chest CTA 12/10/22 18:39 Exam(s): CTA CHEST IV Amt: 118ml EXAM: CT Angiography Chest With Intravenous Contrast CLINICAL HISTORY: Reason for exam: ro PE. TECHNIQUE: Axial computed tomographic angiography images of the chest with intravenous contrast. CTDI is 14.51 mGy and DLP is 490.19 mGy-cm. Automated exposure control was utilized for the study. A dose lowering technique was utilized adhering to the principles of ALARA. MIP reconstructed images were created and reviewed. COMPARISON: None. FINDINGS: Pulmonary arteries: No pulmonary embolism. Aorta: No aneurysm. Lungs: Clear. No consolidation. Pleural space: No significant effusion. No pneumothorax. Heart: No cardiomegaly. No significant pericardial effusion. No evidence of elevated right heart pressures. Bones/joints: No acute fracture. Soft tissues: Unremarkable. Lymph nodes: No enlarged lymph nodes. IMPRESSION: 1. No pulmonary embolism. 2. Lungs are clear. Electronically signed by: Charla Mcallsiter M.D. 12/10/22 20:29 PM ECG Data Attestation: I personally reviewed and interpreted this ECG as follows: Indication: SOB/dyspnea Rate (beats per minute): 71 Rhythm: normal sinus Findings: no ST depression, no ST elevation or no prolonged QT Additional Comments: QRS 78 MDM Narrative 1659: The patient was evaluated in room A11. A complete history and physical exam was performed Cardiac monitoring: An order was placed for continuous cardiac monitoring. The monitor shows a rate of 70 with sinus rhythm interpreted by me 2112: Patient remains hypertensive with systolic blood pressures below 160. Labs and imaging within normal limits including urinalysis negative for protein, normal platelets, normal liver function test. Low risk for eclampsia/preeclampsia. CT of the head and CTA of the chest within normal limits. Patient still reporting headache. Discussed the case with Dr. Trammell on-call [facility] PROFESSOR OF COMMUNICATION. We will give the patient Toradol to see if it relieves her headache. She agrees she thinks this is more gestational hypertension and we could possibly add labetalol 100 mg twice daily if the patient's headache and blood pressure are improved. 2157: Patient remains hypertensive. Headache mildly improved. Dr. Trammell at bedside. She recommends Procardia 20 mg p.o. She states she will admit the patient to her service monitoring of the patient's blood pressure and possible magnesium. Impression & Plan Gestational hypertension without significant proteinuria, hypertension Discharge Plan Visit Data Chief Complaint: Headache Stated Complaint: HEADACHE, HIGH BP ED Provider: Augusto Watson Discharge Problem: Gestational hypertension without significant proteinuria, hypertension Patient Disposition: Admitted As Inpatient Discharge Instructions Interventions: ED Discharge Assessment Last Done: 12/10/22 22:56 Forms Stand Alone Forms: My [facility] [place] Illum[employer] Prescriptions Prescriptions: No Action sertraline 50 mg tablet 50 mg PO QAM Rx Instructions: take with 100mg sertraline 100 mg tablet 100 mg PO QAM Rx Instructions: take with 50mg nifedipine [Procardia XL] 30 mg tablet extended release 24hr 30 mg PO QAM alprazolam 1 mg tablet 1.5 - 2 mg PO HS PRN (Reason: anxiety/insomnia) alprazolam 0.5 mg tablet 0.5 - 1 mg PO BID PRN (Reason: daytime anxiety) Vitamin 27 mg iron- 800 mcg Tablet 1 tab PO DAILY Referrals Referrals: Rolanda Gray PA-C [Primary Care Provider] -
[2022-12-10 18:06] LABS: Alanine Aminotransferase 17 U/L (7-52); Albumin Globulin Ratio 1.2 (0.9-2); Albumin Level 4.1 gm/dl (3.4-5.0); Alkaline Phosphatase 83 U/L (34-104); Anion Gap 9 (3-11); Aspartate Aminotransferase 15 U/L (13-39); Bilirubin,Total 0.2 mg/dl (0.2-1.0); Blood Urea Nitrogen 20 mg/dl (6-23); Calcium 9.1 mg/dl (8.6-10.3); Carbon Dioxide 23 mmol/L (21-32); Chloride 105 mmol/L (98-107); Est GFR (African American) 131.6 ml/min; Est GFR (Non-African American) 113.6 ml/min; Globulin 3.5 gm/dl (2.5-4.0); Glucose 89 mg/dl (70-99(Fasting)); Magnesium 2.1 mg/dl (1.7-2.4); Potassium 3.7 mmol/L (3.5-5.1); Sodium 137 mmol/L (136-145); Total Protein 7.6 gm/dl (6.0-8.3)
[2022-12-10 18:35] LABS: INR 0.9 (0.9-1.1); Partial Thromboplastin Time 29.4 Seconds (21.0-31.0); Prothrombin Time 10.2 Seconds (9.0-12.0)
[2022-12-10 18:39] LABS: D Dimer 650 ug/L FEU (0-500)
[2022-12-10 18:40] LABS: Appearance Urine Clear (Clear); Bacteria Urine Automated Negative (Negative); Bilirubin Urine Negative (Negative); Blood Urine 3+ (Negative); Cast Urine Automated 0 /lpf (0-5); Color Urine Yellow; Epithelial Cell Urine Auto 20-30 /lpf (0-5); Glucose Urine UA Negative (Negative); Ketones Urine Negative (Negative); Leukocyte Esterase Urine 3+ (Negative); Nitrite Urine Negative (Negative); Protein Urine Negative (Negative); RBC Urine Automated 0-4 /hpf (0-4); Specific Gravity Urine 1.009 (1.000-1.030); Urobilinogen Urine Negative (Negative)
[2022-12-10] MEDS ORDERED: IOVERSOL 350 MG 125mL Prefilled Syringe IV ONE (18:59)
--- NOTE | 2022-12-10 20:26 | CT Scan Report ---
Exam(s): CT HEAD Without Contrast EXAM: CT Head Without Intravenous Contrast CLINICAL HISTORY: Reason for exam: Headache, preeclampsia. TECHNIQUE: Axial computed tomography images of the head/brain without intravenous contrast. CTDI is 38.64 mGy and DLP is 624.41 mGy-cm. Automated exposure control was utilized for the study. A dose lowering technique was utilized adhering to the principles of ALARA. Mild motion artifact. COMPARISON: None. FINDINGS: Brain: No mass effect or acute infarct. No acute hemorrhage. Ventricles: No hydrocephalus or midline shift. Bones/joints: No skull fracture. Soft tissues: No scalp hematoma. Sinuses: Clear. Mastoid air cells: No mastoid effusion. IMPRESSION: 1. No acute infarct, bleed, or acute intracranial abnormality. 2. Normal exam, mildly limited by patient motion. Electronically signed by: Charla Mcallister M.D. 12/10/22 20:25 PM
--- NOTE | 2022-12-10 20:30 | CT Scan Report ---
Exam(s): CTA CHEST IV Amt: 118ml EXAM: CT Angiography Chest With Intravenous Contrast CLINICAL HISTORY: Reason for exam: ro PE. TECHNIQUE: Axial computed tomographic angiography images of the chest with intravenous contrast. CTDI is 14.51 mGy and DLP is 490.19 mGy-cm. Automated exposure control was utilized for the study. A dose lowering technique was utilized adhering to the principles of ALARA. MIP reconstructed images were created and reviewed. COMPARISON: None. FINDINGS: Pulmonary arteries: No pulmonary embolism. Aorta: No aneurysm. Lungs: Clear. No consolidation. Pleural space: No significant effusion. No pneumothorax. Heart: No cardiomegaly. No significant pericardial effusion. No evidence of elevated right heart pressures. Bones/joints: No acute fracture. Soft tissues: Unremarkable. Lymph nodes: No enlarged lymph nodes. IMPRESSION: 1. No pulmonary embolism. 2. Lungs are clear. Electronically signed by: Charla Mcallister M.D. 12/10/22 20:29 PM
[2022-12-10] MEDS ORDERED: KETOROLAC TROMETHAMINE 15 MG/ML VIAL IV STA (21:17)
[2022-12-10] MEDS ORDERED: NIFEdipine 10 MG CAP PO STA (21:57)
--- NOTE | 2022-12-10 22:15 | History & Physical Report ---
Date of Service December 10, 2022 Assessment & Plan (1) hypertension: Plan: Because she delivered 11 days ago we will start magnesium sulfate prophylaxis for 24 hours although the likelihood for seizure is unlikely because all her labs are normal. I suspect her headache is because of the Procardia. She has been doing well on the once daily dosing but increasing it to twice a day was when her headaches begun. Unfortunately her blood pressure is also elevated so it is difficult to tell if this is preeclampsia with severe features or a side effect of the Procardia. Therefore she will be admitted for observation for better blood pressure control. She will receive 20 mg rapid release nifedipine p.o. in the emergency room prior to being moved up to labor and delivery for magnesium sulfate therapy. The plan is to continue with the Procardia 30 mg XL dose in the morning, but add labetalol for better blood pressure control going forward. History of Present Illness Primary Care Provider: Rolanda Gray PA-C Patient is a 32-year-old 2 para 2-0-0-2 female status post spontaneous vaginal delivery on 11/30/2022. She had been diagnosed with gestational hypertensionAnd was induced at 37+ weeks gestation as a result. her blood pressures remained in the 150/90 range and she was ultimately discharged on Procardia XL 30 mg. She was 3 evaluated in the office on 11/08/2022 and pressures were still elevated with a diastolic of 94. Her Procardia XL dose was increased to 30 mg twice daily. Since increasing to the twice daily dose, she has been plagued by headaches. She came to the ER for further evaluation because of the ongoing headache and blood pressure that was elevated at home. In the emergency room her blood pressures were in the 160s over 110 range upon arrival. All [facility] labs are in the normal range. Her only complaint is the ongoing headache for which she has received IV Toradol. This is helped her's headache somewhat. Because of her ongoing elevated blood pressures and headaches, we feel it is prudent to admit for observation on magnesium sulfate for 24 hours. We will also take this time to more adequately control her blood pressure. Patient is agreeable to this plan. Allergies Allergy/AdvReac Type Severity Reaction Status Date / Time No Known Allergies Allergy Verified 12/10/22 23:44 Home Medications Medication Instructions Recorded Confirmed Type sertraline 50 mg tablet 50 mg PO QAM 11/18/22 12/10/22 History alprazolam 0.5 mg tablet 0.5 - 1 mg PO BID PRN daytime 12/10/22 12/10/22 History anxiety alprazolam 1 mg tablet 1.5 - 2 mg PO HS PRN 12/10/22 12/10/22 History anxiety/insomnia nifedipine 30 mg tablet,extended 30 mg PO QAM 12/10/22 12/10/22 History release 24 hr (Procardia XL) vits no.130-ferrous fum 1 tab PO DAILY 12/10/22 12/10/22 History 27 mg iron-folic acid 800 mcg tablet ( Vitamin) sertraline 100 mg tablet 100 mg PO QAM 12/10/22 12/10/22 History Patient History Medical History Gestational hypertension History of anxiety (normal spontaneous vaginal delivery) Scoliosis Seasonal allergies Umbilical vein abnormality affecting Surgical History (Updated 12/10/22 @ 23:44 by Anabelle Crowder RN) H/O LEEP 2012 History of epidural anesthesia [facility] [place]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 Both emotionally and pain-kemp. Had lots of pain with epidural last delivery. Would like an anesthesia consult and wants to think about vs . We discussed pros/cons." History of eye surgery ICL- Corrective surgery S/P tonsillectomy and adenoidectomy Family History Mother Hypertension Father Hypertension Dyslipidemia Hyperthyroidism Carotid artery disease Other Diabetes Social History Smoking Status: Never smoker Do You Dip or Chew Tobacco: No; Hx Alcohol Use: No Hx Substance Use: No Preferred Language: Beninese Communication Ability: Effective Fund Accountant Required: No Beliefs That Will Affect Care: None marital status: marital status details: Jacky (42) [phone] Current Living Situation: Spouse Current Living Situation Comment: lives with spouse, daughter, 2 cats, spouse to change litter current occupational status: employed 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 Feels Safe at Home: Yes Review of Systems All systems reviewed & are unremarkable except as noted in HPI & below Physical Exam Constitutional: WD/WN, vitals as above Respiratory: normal respiratory effort, lungs clear to auscultation Cardiovascular: RRR, no murmur, no edema Neurologic: patellar DTR's 2/4- brisk bilaterally- no clonus Psychiatric: A+Ox3, euthymic affect Results & Data Vital Signs (Past 12 Hours) Vital Signs Temp Pulse Resp BP BP Pulse Ox O2 Del Method 12/10/22 20:56 160/102 H 12/10/22 20:42 69 15 95 Room Air 12/10/22 19:07 65 14 163/99 H 96 Room Air 12/10/22 17:20 167/117 H 12/10/22 17:15 75 20 96 Room Air 12/10/22 17:03 80 12/10/22 16:45 98.2 F 79 16 162/111 H 96 Room Air Coding Level of Care Code 09828 INT INP/OBS CARE 2/55MIN Diagnoses hypertension O16.5
[2022-12-10] MEDS ORDERED: MAG SULFATE 4GM BOLUS FROM BAG IV ONE (22:24)
[2022-12-10] MEDS ORDERED: ALPRAZolam 0.5 MG TABLET PO PRN (22:46)
[2022-12-10] MEDS ORDERED: Nursing to Pharmacy Communication SCH (23:30)
[2022-12-10] MEDS: MAGNESIUM SULFATE / WTR 40 GM/1,000 ML BAG IV SCH (23:41)
[2022-12-10] MEDS: LACTATED RINGER'S 1,000 ML IV SCH (23:56)
[2022-12-11] MEDS ORDERED: LABETALOL HCL 100 MG TAB PO ONE
[2022-12-11] MEDS: ALPRAZolam 0.5 MG TABLET PO PRN ×2 (00:04→23:00)
[2022-12-11] MEDS: SERTRALINE HCL 50 MG TABLET PO SCH ×2 (00:15→21:15)
[2022-12-11] MEDS: SERTRALINE HCL 100 MG TABLET PO SCH ×2 (00:15→21:15)
[2022-12-11] MEDS: PRENATAL VITAMIN 1 TAB PO SCH ×2 (00:19→21:15)
[2022-12-11 01:03] LABS: Hematocrit (blood only) 39.8 % (37.0-47.0); Hemoglobin 13.2 g/dl (12.0-16.0); Mean Corpuscular Hemoglobin 27.3 pg (25.0-34.0); Mean Corpuscular Hgb Conc 33.2 g/dL (32.0-36.0); Mean Corpuscular Volume 82.4 fL (80.0-100.0); Mean Platelet Volume 9.4 fL (9.4-12.4); Platelet Count 295 K/uL (130-400); RDW Coefficient of Variation 13.7 % (11.5-14.5); RDW Standard Deviation 41.1 fL (36.4-46.3); Red Blood Count 4.83 M/uL (4.20-5.40)
[2022-12-11 05:56] LABS: Basophils # (auto) 0.04 K/uL (0.00-0.20); Basophils % (auto) 0.6 %; Eosinophils # (auto) 0.18 K/uL (0.00-0.50); Eosinophils % (auto) 2.6 %; Hematocrit (blood only) 37.3 % (37.0-47.0); Hemoglobin 12.3 g/dl (12.0-16.0); Immature Granulocytes # (auto) 0.02 K/uL (0.01-0.20); Immature Granulocytes % (auto) 0.3 %; Lymphocytes # (auto) 2.21 K/uL (1.20-3.40); Mean Corpuscular Hemoglobin 27.4 pg (25.0-34.0); Mean Corpuscular Volume 83.1 fL (80.0-100.0); Mean Platelet Volume 9.1 fL (9.4-12.4); Monocytes # (auto) 0.62 K/uL (0.11-0.59); Neutrophils # (auto) 3.83 K/uL (1.40-6.50); Neutrophils % (auto) 55.5 %; Platelet Count 271 K/uL (130-400); RDW Coefficient of Variation 13.7 % (11.5-14.5); Red Blood Count 4.49 M/uL (4.20-5.40)
[2022-12-11 06:07] LABS: Albumin Level 3.8 gm/dl (3.4-5.0); Bilirubin,Total 0.3 mg/dl (0.2-1.0); Creatinine Clr Calc Pharmacy 125.8 ml/min; Est GFR (African American) 138.6 ml/min; Est GFR (Non-African American) 119.6 ml/min; Total Protein 6.8 gm/dl (6.0-8.3)
[2022-12-11] MEDS: ACETAMINOPHEN 325 MG TAB PO PRN ×3 (07:16→22:21)
[2022-12-11] MEDS ORDERED: PRENATAL VITAMIN 1 TAB PO SCH (08:00)
--- NOTE | 2022-12-11 08:17 | Obstetrical Progress Note ---
Date of Service December 11, 2022 Assessment & Plan (1) hypertension: Plan: Blood pressure at 2 AM was 80/40 this morning the blood pressure is 102/59. We will hold her Procardia XL 30 mg at 9 AM unless her blood pressure is beginning to escalate. We will also hold the labetalol for the same reason. Continue to monitor blood pressures going forward adding antihypertensives back as needed. Continue mag sulfate for 24 hours which will end at approximately 10 PM tonight. Admission and Anticipated Discharge Date Admission Date: December 10, 2022 Subjective Patient still has a mild headache this morning but otherwise is asymptomatic. No PIH symptoms. She received 20 mg of immediate release nifedipine in the emergency room room last evening at approximately 10 PM. She then received 100 mg of labetalol at midnight. Review of Systems Review of Systems: All systems reviewed & are unremarkable except as noted in HPI & below Physical Exam Constitutional: WD/WN, vitals as above Psychiatric: A+Ox3, euthymic affect Results & Data Vital Signs (Past 12 Hours) Vital Signs Temp Pulse Pulse Resp BP BP Pulse Ox 12/11/22 07:15 16 12/11/22 07:15 12/11/22 06:45 18 12/11/22 05:45 16 12/11/22 04:45 18 12/11/22 03:45 97.7 F 18 12/11/22 03:45 18 12/11/22 02:40 16 12/11/22 01:45 16 12/10/22 23:30 12/11/22 00:20 16 12/10/22 23:30 18 12/10/22 23:45 98.4 F 73 18 137/89 96 12/11/22 08:08 69 100 12/11/22 08:03 66 100 12/11/22 07:58 71 100 12/11/22 07:53 68 100 12/11/22 07:51 70 85 L 12/11/22 07:48 67 100 12/11/22 07:43 67 100 12/11/22 07:38 69 98 12/11/22 07:39 65 116/75 12/11/22 07:33 60 100 12/11/22 07:28 65 100 12/11/22 07:25 68 88 L 12/11/22 07:23 64 100 12/11/22 07:18 63 100 12/11/22 07:13 67 98 12/11/22 07:08 68 96 12/11/22 07:02 60 98 12/11/22 06:57 70 98 12/11/22 06:52 82 98 12/11/22 06:47 66 94 12/11/22 06:42 64 93 12/11/22 06:39 64 102/59 L 12/11/22 06:37 67 93 12/11/22 06:32 66 94 12/11/22 06:27 68 93 12/11/22 06:22 71 93 12/11/22 06:17 68 92 12/11/22 06:12 68 93 12/11/22 06:07 66 94 12/11/22 06:02 71 93 12/11/22 05:57 68 94 12/11/22 05:52 67 94 12/11/22 05:47 65 94 12/11/22 05:42 66 95 12/11/22 05:39 66 105/61 12/11/22 05:37 64 97 12/11/22 05:32 70 95 12/11/22 05:27 65 95 12/11/22 05:22 65 95 12/11/22 05:17 63 95 12/11/22 05:12 65 96 12/11/22 05:07 64 95 12/11/22 05:02 63 95 12/11/22 04:57 63 96 12/11/22 04:52 63 96 12/11/22 04:47 62 97 12/11/22 04:42 63 97 12/11/22 04:39 60 104/70 12/11/22 04:37 61 98 12/11/22 04:32 60 98 12/11/22 04:27 63 97 12/11/22 04:22 62 97 12/11/22 04:19 74 88 L 12/11/22 04:17 69 96 12/11/22 04:12 74 98 12/11/22 04:07 67 97 12/11/22 04:02 68 96 12/11/22 03:57 66 96 12/11/22 03:52 61 96 12/11/22 03:47 77 92 12/11/22 03:40 76 97 12/11/22 03:39 69 95/60 L 12/11/22 03:35 63 94 12/11/22 03:30 63 94 12/11/22 03:25 65 93 12/11/22 03:20 65 94 12/11/22 03:15 66 94 12/11/22 03:10 65 93 12/11/22 03:05 66 93 12/11/22 03:00 66 94 12/11/22 02:55 66 94 12/11/22 02:50 66 93 12/11/22 02:45 67 93 12/11/22 02:40 64 93 12/11/22 02:39 71 90/53 L 12/11/22 02:35 68 94 12/11/22 02:30 68 93 12/11/22 02:25 68 93 12/11/22 02:20 66 93 12/11/22 02:15 68 93 12/11/22 02:10 68 93 12/11/22 02:05 68 93 12/11/22 02:00 69 93 12/11/22 01:55 67 93 12/11/22 01:50 78 94 12/11/22 01:49 87 81/53 L 12/11/22 01:47 66 80/48 L 12/11/22 01:45 67 94 12/11/22 01:40 67 94 12/11/22 01:35 67 94 12/11/22 01:30 67 94 12/11/22 01:25 66 95 12/11/22 01:20 66 96 12/11/22 01:15 67 96 12/11/22 01:10 66 96 12/11/22 01:05 67 96 12/11/22 01:00 69 93 12/11/22 00:55 69 94 12/11/22 00:50 68 94 12/11/22 00:45 74 94 12/11/22 00:46 68 105/65 12/11/22 00:34 75 92 12/11/22 00:29 73 94 12/11/22 00:25 74 112/65 12/11/22 00:24 76 93 12/11/22 00:19 80 97 12/11/22 00:14 83 96 12/11/22 00:10 78 136/89 12/11/22 00:09 72 96 12/11/22 00:04 85 97 12/10/22 23:59 77 96 12/10/22 23:55 74 126/80 12/10/22 23:54 79 97 12/10/22 23:49 82 96 12/10/22 23:44 77 95 12/10/22 23:39 83 96 12/10/22 23:34 97 H 94 12/10/22 23:29 78 96 12/10/22 23:25 76 137/89 94 12/10/22 23:24 84 95 12/10/22 23:19 77 97 12/10/22 21:28 66 12/10/22 20:56 160/102 H 12/10/22 20:42 69 15 95 Pulse Ox O2 Del Method O2 Del Method 12/11/22 07:15 12/11/22 07:15 100 Room Air 12/11/22 06:45 12/11/22 05:45 12/11/22 04:45 12/11/22 03:45 12/11/22 03:45 12/11/22 02:40 12/11/22 01:45 12/10/22 23:30 Room Air 12/11/22 00:20 12/10/22 23:30 12/10/22 23:45 Room Air 12/11/22 08:08 12/11/22 08:03 12/11/22 07:58 12/11/22 07:53 12/11/22 07:51 12/11/22 07:48 12/11/22 07:43 12/11/22 07:38 12/11/22 07:39 12/11/22 07:33 12/11/22 07:28 12/11/22 07:25 12/11/22 07:23 12/11/22 07:18 12/11/22 07:13 12/11/22 07:08 12/11/22 07:02 12/11/22 06:57 12/11/22 06:52 12/11/22 06:47 12/11/22 06:42 12/11/22 06:39 12/11/22 06:37 12/11/22 06:32 12/11/22 06:27 12/11/22 06:22 12/11/22 06:17 12/11/22 06:12 12/11/22 06:07 12/11/22 06:02 12/11/22 05:57 12/11/22 05:52 12/11/22 05:47 12/11/22 05:42 12/11/22 05:39 12/11/22 05:37 12/11/22 05:32 12/11/22 05:27 12/11/22 05:22 12/11/22 05:17 12/11/22 05:12 12/11/22 05:07 12/11/22 05:02 12/11/22 04:57 12/11/22 04:52 12/11/22 04:47 12/11/22 04:42 12/11/22 04:39 12/11/22 04:37 12/11/22 04:32 12/11/22 04:27 12/11/22 04:22 12/11/22 04:19 12/11/22 04:17 12/11/22 04:12 12/11/22 04:07 12/11/22 04:02 12/11/22 03:57 12/11/22 03:52 12/11/22 03:47 12/11/22 03:40 12/11/22 03:39 12/11/22 03:35 12/11/22 03:30 12/11/22 03:25 12/11/22 03:20 12/11/22 03:15 12/11/22 03:10 12/11/22 03:05 12/11/22 03:00 12/11/22 02:55 12/11/22 02:50 12/11/22 02:45 12/11/22 02:40 12/11/22 02:39 12/11/22 02:35 12/11/22 02:30 12/11/22 02:25 12/11/22 02:20 12/11/22 02:15 12/11/22 02:10 12/11/22 02:05 12/11/22 02:00 12/11/22 01:55 12/11/22 01:50 12/11/22 01:49 12/11/22 01:47 12/11/22 01:45 12/11/22 01:40 12/11/22 01:35 12/11/22 01:30 12/11/22 01:25 12/11/22 01:20 12/11/22 01:15 12/11/22 01:10 12/11/22 01:05 12/11/22 01:00 12/11/22 00:55 12/11/22 00:50 12/11/22 00:45 12/11/22 00:46 12/11/22 00:34 12/11/22 00:29 12/11/22 00:25 12/11/22 00:24 12/11/22 00:19 12/11/22 00:14 12/11/22 00:10 12/11/22 00:09 12/11/22 00:04 12/10/22 23:59 12/10/22 23:55 12/10/22 23:54 12/10/22 23:49 12/10/22 23:44 12/10/22 23:39 12/10/22 23:34 12/10/22 23:29 12/10/22 23:25 12/10/22 23:24 12/10/22 23:19 12/10/22 21:28 12/10/22 20:56 12/10/22 20:42 Room Air PG Care Time/CCT Total # of Minutes Spent Total Time Spent with Patient: Total time spent is greater than 50% in coordination of care (as documented) at patient's floor/unit and/or counseling patient: Coding Level of Care Code 25750 SUB INP/OBS CARE 04/28MIN Diagnoses hypertension O16.5
--- NOTE | 2022-12-11 08:39 | Electrocardiogram Report ---
Test Reason : Blood Pressure : / mmHG Vent. Rate : 071 BPM Atrial Rate : 071 BPM P-R Int : 146 ms QRS Dur : 078 ms QT Int : 370 ms P-R-T Axes : 067 065 054 degrees QTc Int : 402 ms Normal sinus rhythm with sinus arrhythmia Normal ECG When compared with ECG of 13-NOV-2003 10:52, No significant change Confirmed by Heron Robles ([id number]) on 12/11/2022 8:39:07 AM Referred By: REFERRED SELF Confirmed By:Heron Robles
[2022-12-11] MEDS ORDERED: LABETALOL HCL 100 MG TAB PO SCH (09:00)
[2022-12-11] MEDS ORDERED: SERTRALINE HCL 100 MG TABLET PO SCH (09:00)
[2022-12-11] MEDS ORDERED: SERTRALINE HCL 50 MG TABLET PO SCH (09:00)
[2022-12-11] MEDS: NIFEdipine EXTENDED REL 30 MG TABCR PO SCH (12:51)
[2022-12-11] MEDS: LACTATED RINGER'S 1,000 ML IV SCH (14:00)
[2022-12-11] MEDS: MAGNESIUM SULFATE / WTR 40 GM/1,000 ML BAG IV SCH (19:04)
[2022-12-11] MEDS ORDERED: IBUPROFEN 600 MG TAB PO PRN (19:36)
--- NOTE | 2022-12-12 11:05 | Obstetrical Progress Note ---
Date of Service December 12, 2022 Assessment & Plan (1) hypertension: Plan: Patient is awake, sitting up in bed, feeling well. Has not had BP medication at all since early yesterday morning after she developed hypotension and therefore meds were held. Stable, normal BPs throughout the day yesterday, magnesium stopped last night. Then normal BPs overnight. This morning, BPs normal. Will continue to monitor blood pressures until afternoon - if stable, will plan to DC home with plans for followup in office on Tuesday. Out of concern for dropping BPs too low, would err on the side of BP a bit higher - however will want to monitor this closely. Followup with psychiatry as scheduled, also recommend follow up with PCP for future BP management after period. Admission and Anticipated Discharge Date Admission Date: December 10, 2022 Results & Data Vital Signs (Past 12 Hours) Vital Signs Temp Pulse Resp BP Pulse Ox 12/12/22 07:45 36.5 C 16 12/12/22 07:45 16 12/12/22 04:59 36.7 C 18 12/12/22 04:15 16 12/12/22 04:15 16 12/11/22 23:30 18 12/12/22 10:23 61 165/94 H 12/12/22 09:50 67 148/96 H 12/12/22 09:23 67 138/93 12/12/22 08:21 59 L 136/72 12/12/22 07:21 60 116/64 12/12/22 06:50 62 117/68 12/12/22 06:20 68 138/85 12/12/22 05:50 60 124/80 12/12/22 05:20 62 125/86 12/12/22 04:50 57 L 159/81 H 12/12/22 03:40 71 115/70 12/12/22 02:40 71 109/67 12/12/22 01:40 78 95/52 L 12/12/22 00:40 75 105/57 L 12/11/22 23:33 69 135/83 12/11/22 23:30 74 98 12/11/22 23:25 78 98 12/11/22 23:20 71 99 12/11/22 23:15 77 98 12/11/22 23:10 69 99 12/11/22 23:05 72 98 PG Care Time/CCT Total # of Minutes Spent Total Time Spent with Patient: Total time spent is greater than 50% in coordination of care (as documented) at patient's floor/unit and/or counseling patient: Coding Level of Care Code 23382 SUB INP/OBS CARE 04/28MIN Diagnoses hypertension O16.5
[2022-12-12] MEDS: NIFEdipine EXTENDED REL 30 MG TABCR PO SCH (12:02)
--- NOTE | 2022-12-14 14:23 | Discharge Summary ---
Date of Service December 14, 2022 Admission HPI Per Admitting Provider Patient is a 32-year-old 2 para 2-0-0-2 female status post spontaneous vaginal delivery on 11/30/2022. She had been diagnosed with gestational hypertensionAnd was induced at 37+ weeks gestation as a result. her blood pressures remained in the 150/90 range and she was ultimately discharged on Procardia XL 30 mg. She was 3 evaluated in the office on 11/08/2022 and pressures were still elevated with a diastolic of 94. Her Procardia XL dose was increased to 30 mg twice daily. Since increasing to the twice daily dose, she has been plagued by headaches. She came to the ER for further evaluation because of the ongoing headache and blood pressure that was elevated at home. In the emergency room her blood pressures were in the 160s over 110 range upon arrival. All PIH labs are in the normal range. Her only complaint is the ongoing headache for which she has received IV Toradol. This is helped her's headache somewhat. Because of her ongoing elevated blood pressures and headaches, we feel it is prudent to admit for observation on magnesium sulfate for 24 hours. We will also take this time to more adequately control her blood pressure. Patient is agreeable to this plan. Admission Exam (Per Admitting) Constitutional WD/WN, vitals as above Respiratory normal respiratory effort, lungs clear to auscultation Cardiovascular RRR, no murmur, no edema Psychiatric A+Ox3, euthymic affect Discharge Data Consultations 12/10/22 21:58 ED Decision to Admit Stat Hospital Course (1) hypertension: Patient is awake, sitting up in bed, feeling well. Has not had BP medication at all since early yesterday morning after she developed hypotension and therefore meds were held. Stable, normal BPs throughout the day yesterday, magnesium stopped last night. Then normal BPs overnight. This morning, BPs normal. Will continue to monitor blood pressures until afternoon - if stable, will plan to DC home with plans for followup in office on Tuesday. Out of concern for dropping BPs too low, would err on the side of BP a bit higher - however will want to monitor this closely. Followup with psychiatry as scheduled, also recommend follow up with PCP for future BP management after period. Discharge Plan Discharge Items Patient Disposition: Home - Self-Care Reason For Visit: ELEVATED BP'S PPX Discharge Diagnosis: hypertension Activity: Per Instructions section Non-emergency contact: Compliance Specialist Call non-emergency contact if: your symptoms worsen, your pain is not controlled and your temperature is above 101 Follow-up/Referrals: Rolanda Gray PA-C [Primary Care Provider] - Diet: Regular OB Addtl Attending Provider Instructions: ACTIVITY RECOMMENDATIONS: * Gradual return to full activity over the next 2-3 weeks. * No lifting - nothing heavier than baby over the next 2-3 weeks. * Do not engage in vigorous exercise, sexual activity or sports until cleared by your physician. * Do not drive or operate any motorized equipment until cleared by your physician. * You may shower/bathe daily. MEDICATIONS: For discomfort or pain, you may use Acetaminophen (Tylenol), Ibuprofen (Advil), or Naproxen (Aleve) following the package directions. For constipation you may use Colace following the package directions. BREAST CARE: If you are not breast feeding: * Wear a supportive bra 24 hours a day for one to two weeks. * Avoid stimulating your breasts and nipples as much as possible during the first few weeks after delivery. * When taking a shower, have the warm water hit your back, not breasts. * When your breasts feel full, apply ice packs. Usually three to four times a day helps ease the discomfort. * Take a mild pain medication (Tylenol / Motrin) when you are uncomfortable. If breast feeding: * Use breast milk to lubricate nipples. Lansinoh cream may be used for sore nipples. You do not need to remove cream prior to breast feeding. If using a different brand of cream, check the label for directions regarding removal of cream prior to nursing. * Wear a supportive bra. * If having problems with breasts or breast feeding, call a telesales consultant or your health care provider. EPISIOTOMY CARE: After delivery, if you have an episiotomy (stitches), the following steps will ease discomfort and aid healing. * For the first 24 hours after delivery, place ice packs next to your episiotomy to help reduce swelling. * After the first 24 hour-period, sitz baths, either portable or in the tub, are suggested. A shower with a shower arm sprayed over the episiotomy may be comforting. * Vianey care should be done after each voiding and bowel movement. Squirt warm water from a plastic bottle over the perineum (region of the body between the anus and urinary opening) and pat dry. * Use Dermoplast to ease discomfort. Shake container. Ralston directly over the episiotomy. Place a Tucks on a clean sanitary pad next to your episiotomy. SPECIAL CARE INSTRUCTIONS: When you are discharged from the hospital, it is important for you to follow the instructions listed below: * During the first week at home, you should be able to care for yourself and your baby. In addition, the usual light household activities are encouraged. * Limit your activities to the way you feel. Do not try to clean the house or move furniture. Be sensible. * If you actively engage in sports and have done so up until the time of your delivery, you may resume these activities as soon as you feel able. This may take up to one month or even longer. Use good judgment. * Continue to take your vitamins for at least six weeks after the of your baby. * Your diet need not be limited unless you were on a special diet before your delivery. Breast-feeding mothers need around 2500 calories per day and at least 64-80 ounces of fluid per day (8 to 10 glasses). * You should eat foods from the four major food groups. Crash diets or fad diets are to be avoided. Eating lean meats, fresh fruits and vegetables, low-fat dairy products, high fiber foods and a regular exercise program, will help you get back to your pre- weight without putting your health at risk. * Constipation is sometimes a problem after delivery. Take a mild laxative as needed. If breast feeding, Milk of Magnesia is acceptable to use. You may use a suppository or Fleets enema if no episiotomy. * A daily shower or tub bath is suggested. Be sure to thoroughly and gently dry the perineum. * A bloody vaginal discharge will usually continue until around four weeks post . A small amount of bleeding may continue for as long as six weeks. Vaginal discharge changes from the bright red bleeding after delivery to pink then brownish and finally yellowish-pink before becoming white and disappearing. * Bleeding may increase with activity. Your first period may come in 4-8 weeks. If you are breast feeding, your period may be delayed even longer. * Adrian (sex) can begin whenever both you and your partner feel comfortable and do not have any form of genital infection. It is recommended that you wait at least six weeks for internal and external healing to occur. If you have questions, please talk to your health care practitioner. A condom should be used to prevent infection and . * Foreplay, gentle intercourse and lubrication is very important the first several times to prevent pain. A water-based lubricant such as K-Y jelly or Astroglide may be used. * If you have RH negative blood and your baby is RH positive, you will receive RHOGAM by injection prior to discharge. The nurse will give you a card to keep with you that has the date and place that you received RHOGAM after delivery. * During your care, you had a Rubella screen done to check for the presence of rubella antibodies in your blood. If your test was negative, you will receive a Rubella vaccine prior to discharge. This vaccine may cause a fever, soreness at the injection site and flu-like symptoms. If these symptoms persist, notify your health care practitioner. is not advised for one month after a Rubella vaccine. * Verbalizes understanding of car seat law as reviewed with patient nursing. * Car Seat hand-out given and reviewed with patient by nursing. * Shaken baby information reviewed with patient by nursing. Call you doctor if: * Heavy bleeding (saturating several pads an hour) or passing clots the size of your fist. * A fever >101 degrees F (38.3 degrees C) on two occasions four hours apart and/or chills. * Unusual pain in the pelvic or vaginal areas. * "Baby Blues" lasting longer than two weeks. If you have any questions or concerns, call your health care practitioner at . FOLLOW UP VISIT: * Please call the office at to schedule a 6 week examination. It is important you keep this appointment. It is important for you to make arrangements for either yearly or twice yearly check-ups thereafter. Pending Studies at Discharge: No Stand-Alone Forms: [employer], Smoking Cessation Medications and DC Order Prescriptions: No Action sertraline 50 mg tablet 50 mg PO QAM Rx Instructions: take with 100mg sertraline 100 mg tablet 100 mg PO QAM Rx Instructions: take with 50mg nifedipine [Procardia XL] 30 mg tablet extended release 24hr 30 mg PO QAM alprazolam 1 mg tablet 1.5 - 2 mg PO HS PRN (Reason: anxiety/insomnia) alprazolam 0.5 mg tablet 0.5 - 1 mg PO BID PRN (Reason: daytime anxiety) Vitamin 27 mg iron- 800 mcg Tablet 1 tab PO DAILY Discharge Orders: Discharge Order (Routine); Ordered 12/12/22 Ordered By: Sade Thao Admission Data Admit Date/Time: 12/10/22 22:44 Attending Provider: Jeanne Barfield Admit Provider: Jeanne Barfield Primary Care Provider: Rolanda Gray Other Interventions: Discharge Summary Assessment (RN) Last Done: 12/12/22 15:28 Coding Level of Care Code 58508 IN/OBS DISCH 30 MIN/LESS Diagnoses hypertension O16.5
== END 2022-12-12 16:22 | disposition home or self-care (01) | DRG 776 ==
LOC: ED 16:12 → 4S1 22:44